=== PATIENT | female | born 1995 ===

== ENCOUNTER 2017-07-10 09:08 | Emergency (ER) | payer SELFPAY ==
[~2017-07-10] VITALS: Ht 162.6 cm; Wt 63.5 kg
[2017-07-10 09:11] VITALS: Ht 162.6 cm; Wt 63.5 kg
[2017-07-10] MEDS ORDERED: SULF1TAB31 PO (10:21)
[2017-07-10] MEDS ORDERED: CEPH-443 PO (10:21)
--- NOTE | 2017-07-10 15:06 | ERD ---
ER Documentation Chief Complaint Chief Complaint LEFT HAND PAIN AND SWELLING X 3 DAYS HPI This is a 21-year-old female presenting to emergency department for left hand pain and swelling 3 days. Patient states she uses heroin and attempted to inject into her left hand. Patient states she "missed" and is now having pain to left hand. Patient is also having swelling to entire left hand. Patient unable to make a fist. No trauma or injury to hand. No numbness or tingling to area. Patient states this has happened before. ROS All systems reviewed and are negative except as per history of present illness. Medications Home Meds Active Scripts Cephalexin* (Keflex*) 500 Mg Capsule, 500 MG PO QID for 7 Days, CAP Prov:PARISH BRIDGES NP 07/10/17 Sulfamethoxazole/Trimethoprim* (Bactrim Ds* Tablet) 1 Each Tablet, 1 TAB PO BID , #14 TAB Prov:PARISH BRIDGES NP 07/10/17 PMhx/Soc Medical and Surgical Hx: pt denies Medical Hx, pt denies Surgical Hx Hx Alcohol Use: No Hx Substance Use: No Hx Tobacco Use: No Smoking Status: Never smoker Physical Exam Vitals Vital Signs Date Time Temp Pulse Resp B/P Pulse Ox O2 Delivery O2 Flow Rate FiO2 07/10/17 09:11 98.5 111 19 119/75 100 Physical Exam Const: Alert Head: Atraumatic Eyes: Normal Conjunctiva Resp: Clear to auscultation bilaterally Cardio: Regular rate and rhythm, no murmurs Skin: Generalized swelling to left hand. erythema to inter-webbing of 1st and 2nd digit. no active drainage or bleeding. no lymphatic streaking. capillary refill < 3 seconds. sensation fully intact. Back: No midline or flank tenderness Ext: No cyanosis, or edema Neur: Awake and alert Psych: Normal Mood and Affect Procedures/MDM MDM: This is a 21-year-old female presenting to emerge department for pain and swelling of left hand after attempting to inject heroin. Patient is afebrile vital signs are stable. On physical exam there is erythema and generalized swelling of left hand. No lymphatic streaking. No induration or abscess formation. Patient's sensation is fully intact. Capillary refill less than 3 seconds. Patient likely has cellulitis secondary to heroin abuse. Low suspicion for abscess or osteomyelitis. Patient is appropriate for outpatient management will be given prescription for Keflex and Bactrim. Instructed patient return to the ED in 2 days for wound recheck. Return to ED for any high fever, chest pain, difficulty breathing, shortness breath, wheezing, vomiting, diarrhea, abdominal pain or any new or worsening symptoms. Patient verbalizes understanding. All questions answered at discharge. Disclaimer: Inadvertent spelling and grammatical errors are likely due to EHR/ dictation software use and do not reflect on the overall quality of patient care. Also, please note that the electronic time recorded on this note does not necessarily reflect the actual time of the patient encounter. Departure Diagnosis: Primary Impression: Cellulitis Site of cellulitis: extremity Site of cellulitis of extremity: upper extremity Laterality: left Qualified Code: L03.114 - Cellulitis of left upper extremity Condition: Stable Patient Instructions: Cellulitis Referrals: [facility] YOU HAVE RECEIVED A MEDICAL SCREENING EXAM AND THE RESULTS INDICATE THAT YOU DO NOT HAVE A CONDITION THAT REQUIRES URGENT TREATMENT IN THE EMERGENCY DEPARTMENT. FURTHER EVALUATION AND TREATMENT OF YOUR CONDITION CAN WAIT UNTIL YOU ARE SEEN IN YOUR DOCTORS OFFICE WITHIN THE NEXT 1-2 DAYS. IT IS YOUR RESPONSIBILITY TO MAKE AN APPOINTMENT FOR FOLOW-UP CARE. IF YOU HAVE A PRIMARY DOCTOR --you should call your primary doctor and schedule an appointment IF YOU DO NOT HAVE A PRIMARY DOCTOR YOU CAN CALL OUR PHYSICIAN REFERRAL HOTLINE AT IF YOU CAN NOT AFFORD TO SEE A PHYSICIAN YOU CAN CHOSE FROM THE FOLLOWING [facility] [address] [facility]. [facility] [address] [facility]. [place] [address] [facility] [facility] [address] [facility] [address] [facility]. [facility]. [address] [facility]. [facility] YOU HAVE RECEIVED A MEDICAL SCREENING EXAM AND THE RESULTS INDICATE THAT YOU DO NOT HAVE A CONDITION THAT REQUIRES URGENT TREATMENT IN THE EMERGENCY DEPARTMENT. FURTHER EVALUATION AND TREATMENT OF YOUR CONDITION CAN WAIT UNTIL YOU ARE SEEN IN YOUR DOCTORS OFFICE WITHIN THE NEXT 1-2 DAYS. IT IS YOUR RESPONSIBILITY TO MAKE AN APPOINTMENT FOR FOLOW-UP CARE. IF YOU HAVE A PRIMARY DOCTOR --you should call your primary doctor and schedule and appointment IF YOU DO NOT HAVE A PRIMARY DOCTOR YOU CAN CALL OUR PHYSICIAN REFERRAL HOTLINE AT . IF YOU CAN NOT AFFORD TO SEE A PHYSICIAN YOU CAN CHOSE FROM THE FOLLOWING [facility] INSTITUTIONS: [facility] [id number] [place] [address] [facility] [address] [place] [address] [facility] [address] [place] [address] Additional Instructions: Return to ED in 2 days for recheck. Call your primary care doctor TOMORROW for an appointment during the next 2-3 days.See the doctor sooner or return here if your condition worsens before your appointment time. Return to ED for any high fever, chest pain, difficulty breathing, shortness breath, wheezing, vomiting, diarrhea, abdominal pain or any new or worsening symptoms. PARISH BRIDGES NP Jul 10, 2017 15:06
== END 2017-07-10 10:38 | disposition home or self-care (01) ==
LOC: FTE 09:08
DX: L03.114 Cellulitis of left upper limb (principal)
CPT/HCPCS: 99284